=== PATIENT | female | born 2000 | race Caucasian/White ===

== ENCOUNTER 2019-11-15 23:10 | Emergency (ER) | payer BC, OTHER ==
[2019-11-15 23:24] VITALS: BP 111/67
--- OUTSIDE RECORDS SUMMARY | 2019-11-15 23:28 | XMS REPORT | Summary of Care ---
:2000 Author Organization [facility] Address [address] [address] Care Team Providers Name Role Phone Courtney Fraser Primary Care Provider Reason for Visit Reason Comments Establish Care Encounter Details Date Type Department Care Team Description 10/25/2019 Office Visit [facility], Encounter to establish care ( Primary Dx); Tamika Valdez NP Encounter for screening for human immunodeficiency virus (HIV); [address] [place] [address] Non-cardiac chest pain; [place] [address] FHx: BRCA gene positive [phone] Allergies Active Allergy Reactions Severity Noted Date Comments Amoxicillin Trihydrate Rash 08/23/2014 Cefzil Rash 08/23/2014 documented as of this encounter (statuses as of 10/25/2019) Medications Medication Sig Dispensed Refills Start Date End Date Status Ibuprofen (MOTRIN Take by 0 10/25/2019 Discontinued PO) mouth. 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 Knee pain, right 08/23/2014 documented as of this encounter (statuses as of 10/25/2019) Immunizations Name Administration Dates Next Due DTAP 06/12/2003, 08/25/1999, 1998, 1998, 1998 HIB (PRP-T) 08/25/1999, 1998, 1998, 1998 Hepatitis A Vaccine Peds 08/06/2009, 06/19/2007 Hepatitis B Vaccine 1998, 1998, 1998 Human Papillomavirus 08/17/2012, 10/13/2011, 08/12/2011 Influenza (IM) Preservative Free 08/24/2019, 08/09/2017, 07/24/2016, 08/22/2014, 08/20/2013, 08/17/2012, 08/12/2011 Influenza (IM) W/Pres 08/06/2010, 08/06/2009 MENINGOCOCCAL CONJUGATE VACCINE 08/22/2014, 08/06/2009 MMR VACCINE 06/12/2003, 05/27/1999 Meningococcal B Vaccine 03/12/2019, 12/11/2018 Poliomyelitis vaccine 06/12/2003, 05/27/1999, 1998, 1998 TDAP Vaccine 08/06/2009 Varicella Vaccine Live 11/02/2006, 05/27/1999 dT Vaccine 12/11/2018 documented as of this encounter Social History Tobacco Use Types Packs/Day Years Used Date Never Smoker Smokeless Tobacco: Never Used Alcohol Use Drinks/Week oz/Week Comments Yes occasional Social Isolation Answer Date Recorded In a typical week, how many times do you talk on Three times a week 2019 the phone with family, friends, or neighbors? How often do you get together with friends or Three times a week 10/25/2019 relatives? How often do you attend baptist or druze 1 to 4 times per year 10/25/2019 services? Do you belong to any clubs or organizations such Yes 10/25/2019 as baptist groups, unions, fraternal or athletic groups, or school groups? How often do you attend meetings of the clubs or 1 to 4 times per year 2019 organizations you belong to? Are you now , , , Not asked , never or living with a partner? Physical Activity Answer Date Recorded On average, how many days per week do you engage in moderate to 2 days 2019 strenuous exercise (like walking fast, running, jogging, dancing, swimming, biking, or other activities that cause a light or heavy sweat)? On average, how many minutes do you engage in exercise at this 30 min 2019 level? Stress Answer Date Recorded Do you feel stress - tense, restless, nervous, or anxious, Not at all 2019 or unable to sleep at night because your mind is troubled all the time - these days? Financial Resource Strain Answer Date Recorded How hard is it for you to pay for the very basics like Not hard at all 2019 food, housing, medical care, and heating? Intimate Partner Violence Answer Date Recorded Within the last year, have you been afraid of your partner or No 10/25/2019 ex-partner? Within the last year, have you been humiliated or emotionally No 10/25/2019 abused in other ways by your partner or ex-partner? Within the last year, have you been kicked, hit, slapped, or No 10/25/2019 otherwise physically hurt by your partner or ex-partner? Within the last year, have you been raped or forced to have any No 10/25/2019 kind of sexual activity by your partner or ex-partner? Food Insecurity Answer Date Recorded Within the past 12 months, you worried that your food would Never true 2019 run out before you got money to buy more. Within the past 12 months, the food you bought just didn't Never true 2019 last and you didn't have money to get more. Transportation Needs Answer Date Recorded In the past 12 months, has lack of transportation kept you from No 10/25/2019 medical appointments or from getting medications? In the past 12 months, has lack of transportation kept you from No 10/25/2019 meetings, work, or getting things needed for daily living? Sex Assigned at Date Recorded Not on file Job Start Date Occupation Industry Not on file Not on file Not on file Travel History Travel Start Travel End No recent travel history available. documented as of this encounter Last Filed Vital Signs Vital Sign Reading Time Taken Comments Blood Pressure 118/58 10/25/2019 1:04 PM EST Pulse 59 10/25/2019 1:04 PM EST Temperature - - Respiratory Rate - - Oxygen Saturation 95% 10/25/2019 1:04 PM EST Inhaled Oxygen Concentration - - Weight 58.5 kg (129 lb) 10/25/2019 1:04 PM EST Height 162.6 cm (5' 4") 10/25/2019 1:04 PM EST Body Mass Index 22.14 10/25/2019 1:04 PM EST documented in this encounter Patient Instructions Patient InstructionsCourtney Fraser NP - 10/25/2019 1:00 PM EST Consider meeting with the breast cancer specialist - let me know when you would like this referral. Find out when you are due for your physical and schedule if needed. It was a pleasure meeting you today! Welcome to [facility]. I encourage you to sign up for [employer] for on-line access. DIET AND EXERCISE: Exercise is recommended 150 minutes weekly: 30 minutes five days a week of moderate exercise such as walking. In addition is it recommended you have two days weekly of working all your major muscle groups (arms, legs) such as with weight lifting or other exercise. I recommend a well balanced healthy diet, portion control, drink plenty of fluids. The Mediterranean diet is an excellent diet. Be sure to get adequate sleep at night, 8 hours. If you cannot make an appointment please call to cancel 24 hours in advance so that appointment timecan be made available for another person. Patient Education Genetic Testing for Breast and Ovarian Cancer The Basics Written by the doctors and editors at [facility] What is genetic testing?Genetic testing is done to find out if you have certain abnormal genes. Genes are basically the body's recipe book. They tell your cells how to make different proteins, and they give your body instructions about how you should look and how your body should work. Unfortunately, genes can sometimes have "mutations," mistakes in the recipes that change the way your body makes proteins. These mutations can sometimes put you at risk for disease. There are genetic tests that look for specific mutations that are linked to lots of different diseases. This article is about mutations that increase the risk of breast and ovarian cancer specifically. Which genes affect a person's risk of breast and ovarian cancer? There are several genes that affect a person's risk of breast or ovarian cancer. The two genes most often associated with both breast and ovarian cancer risk are called BRCA1 and BRCA2, but experts are learning about other genes that increase the risk of breast cancer (with or without an increase in ovarian cancer risk). Genes are passed down in families, so women who have family members with breast or ovarian cancer sometimes have genetic tests to find out if they carry abnormal versions of genes. By having these tests, women can find out whether they need to take special steps to protect themselves from cancer. Should I have a genetic test for breast and ovarian cancer? Doctors recommend genetic testing only for women who have a strong family history of breast or ovarian cancer. Testing might make sense for you if you fit any of these descriptions: You have 2 or more close relatives with breast or ovarian cancer, especially if 1 or more of the relatives was diagnosed with cancer before she or he turned 50. (Close family members include your mother, sister, or daughter , and can include men with breast cancer, such as your father, brother, nathanael.) You have a close family member with more than one cancer, such as cancer in both breasts, or cancer in the breast and the ovary. You have family members from different generations with breast or ovarian cancer. (For example,your grandmother, mother, and sister, all with cancer.) Family history on your father's side is as important as your mother's side. Keep in mind, though, that having a strong family history of a disease does not always mean you haveabnormal genes. Most women with a family history of breast or ovarian cancer do not have an abnormalgene. If you are thinking about genetic testing because a family member has cancer, ask if she or he has been tested or is willing to be tested first. If the person with cancer does not have the mutation, itis less likely that you do. What should I do before I get tested?Before you get tested, talk with a genetic counselor or your doctor. A genetic counselor is a person who can help you understand what the results of the test could mean for you and your family, and what costs might be involved with getting tested. He or she can also help you deal with the feelings you have about being at risk for cancer and can help you understand your results. The results are not always clear cut. You can find a list of trained genetic counselors by going online to www.cancer.gov/cancertopics/genetics/directory. What if I test positive for a genetic mutation?If you test positive, try to stay calm.Finding out you carry a mutation can be scary. But there are ways to lower the chances that you willget cancer. Ask your doctor and your genetic counselor what your results mean for you. Then ask what you can do to lower your chances of getting cancer. If you are a woman , this table shows the lifetime risk of breast and ovarian cancer for a woman with a BRCA mutation (table 1). If you test positive for any genetic mutation that might increase your cancer risk, tell your familyabout the results. It affects their health as well as yours. Some family members might also want to get tested. How can I lower the chances that I will get cancer?There are some things you can do tolower your risk. Doctors have learned a lot about this by studying people with a BRCA mutation, and these options may apply to people with other mutations, too: Getting screened for breast and ovarian cancer often. This will not keep you from getting cancer, but it will increase the odds that you will find it early, when it is easier to treat. Having your breasts and ovaries removed. To lower your ovarian cancer risk as much as possible,experts suggest that the ovaries be removed as soon as you are done having children, and by age 40 if you have a BRCA1 mutation. Taking medicines that help prevent cancer Combining some or all of these choices Will my insurance cover genetic testing?In the [place], most health insurance companies cover most of the costs. But your doctor or genetic counselor might need to write a letter to the insurance company to explain why you need testing. Can the results of my test keep me from getting health insurance? No. In the [place] there is a law that prevents companies from using a person's genetic tests to make decisions about insurancecoverage or employment. The law means that: Employers can't deny you a job or fire you because of the results of genetic tests Health insurers can't use genetic test results to deny you coverage or set your insurance rates Employers and insurers can't force you to have genetic tests However, it is important to know that the law does not protect someone with a mutation from getting long-term disability or life insurance. All topics are updated as new evidence becomes available and our peer review process is complete. This topic retrieved from [employer] on: Aug 28, 2019. Topic 25046 Version 12.0 Release: 27.4.5 - C27.318 [employer]. and/or its affiliates.All rights reserved. table 1: Lifetime risk of breast and ovarian cancer for women with BRCA mutations Lifetime risk of breast cancer Lifetime risk of ovarian cancer BRCA1 mutation 55 to 85 percent 35 to 46 percent BRCA2 mutation 50 to 85 percent 13 to 23 percent Graphic 49940 Version 2.0 Consumer Information Use and Disclaimer This information is not specific medical advice and does not replace information you receive from your health care provider. This is only a brief summary of general information. It does NOT include allinformation about conditions, illnesses, injuries, tests, procedures, treatments, therapies, discharge instructions or life-style choices that may apply to you. You must talk with your health care provider for complete information about your health and treatment options. This information should not beused to decide whether or not to accept your health care provider's advice, instructions or recommendations. Only your health care provider has the knowledge and training to provide advice that is right for you.The use of [employer] content is governed by the [employer] Terms of Use. 2019 [employer]. All rights reserved. Copyright 2019[employer]. and/or its affiliates.All rights reserved. documented in this encounter Progress Notes Ling Mcintosh MD - 10/25/2019 1:00 PM ESTNote reviewed 4: 13 PM Courtney Villa NP - 10/25/2019 1:00 PM EST PATIENT: Mary Cintron : 2000 DATE OF SERVICE: 10/25/2019 CHIEF COMPLAINT: Chief Complaint Patient presents with Establish Care Subjective HISTORY OF PRESENT ILLNESS: Mary Cintron is a 19-y.o. female. HPI Here to establish care. Prior PCP was [facility]. Sometimes a sharp pain in chest for a few years but will go away when she takes a deep breath. Lasts about one minute. Not associated with other symptoms such as palpitations diaphoresis or shortnessof breath. LMP: 09/29/19 - no menstrual problems. Not sexually active. Pap (21-65): July 2019 - had a polyp which was [facility] Family or personal history of breast or ovarian cancer: Grandmother breast cancer older age. Mother was positive for BRCA 2. Eye Exam: One year ago, no eye problems. Dental Exam: August 2019 - no dental problems. Specialists: None. Diet: Mostly vegetarian. Water: 64 oz. Exercise: Most days, at least 5 days per week. Club rowing team at [place], running and yoga at home. History reviewed. No pertinent past medical history. Family History Problem Relation Age of Onset Cancer Paternal Grandfather prostate Thyroid Mother Hypothyroid High Cholesterol Father No Known Problems Sister No Known Problems Brother Cancer Maternal Grandmother breast - older age Cancer Maternal Grandfather lung No current outpatient medications on file. No current facility-administered medications for this visit. Allergies Allergen Reactions Amoxicillin Trihydrate Rash Cefzil Rash Social History Socioeconomic History Marital status: Single Spouse name: Not on file Number of children: Not on file Years of education: Not on file Highest education level: Not on file Occupational History Not on file Social Needs Financial resource strain: Not hard at all Food insecurity Worry: Never true Inability: Never true Transportation needs Medical: No Non-medical: No Tobacco Use Smoking status: Never Smoker Smokeless tobacco: Never Used Substance and Sexual Activity Alcohol use: Yes Comment: occasional Drug use: Never Sexual activity: Never Lifestyle Physical activity Days per week: 2 days Minutes per session: 30 min Stress: Not at all Relationships Social connections Talks on phone: Three times a week Gets together: Three times a week Attends druze service: 1 to 4 times per year Active member of club or organization: Yes Attends meetings of clubs or organizations: 1 to 4 times per year Relationship status: Not on file Intimate partner violence Fear of current or ex partner: No Emotionally abused: No Physically abused: No Forced sexual activity: No Other Topics Concern Not on file Social History Narrative [employer] - major in "biology and society" Senior. Over the last 2 weeks, have you been feeling down, depressed, anxious, or hopeless?: 0 Over the past 2 weeks, have you felt little interest or pleasure in doing things ?: 0 REVIEW OF SYSTEMS: Review of Systems Constitutional: Negative for chills, fever, malaise/fatigue and weight loss. HENT: Negative for congestion, ear discharge, ear pain, sinus pain and sore throat. Eyes: Negative for pain, discharge and redness. Respiratory: Negative for cough and shortness of breath. Cardiovascular: Positive for chest pain (see hpi). Negative for palpitations and leg swelling. Gastrointestinal: Negative for abdominal pain, blood in stool, constipation, diarrhea, nausea and vomiting. Genitourinary: Negative for dysuria, frequency and urgency. Musculoskeletal: Negative for back pain, joint pain, myalgias and neck pain. Neurological: Negative for dizziness, tingling, sensory change and headaches. Psychiatric/Behavioral: Negative for depression. The patient is not nervous/ anxious. Objective PHYSICAL EXAM: VITALS: BP 118/58 (BP Location: Left arm, Patient Position: Sitting) | Pulse 59 | Ht 5' 4" (1.626m) | Wt 129 lb (58.5 kg) | SpO2 95% | No | BMI 22.14 kg/m Body mass index is 22.14 kg/m. Physical Exam Vitals signs and nursing note reviewed. Constitutional: General: She is not in acute distress. Appearance: Normal appearance. She is well-developed. Cardiovascular: Rate and Rhythm: Normal rate and regular rhythm. Heart sounds: Normal heart sounds. No murmur. No friction rub. No gallop. Pulmonary: Effort: Pulmonary effort is normal. No respiratory distress. Breath sounds: Normal breath sounds. Neurological: Mental Status: She is alert. Psychiatric: Mood and Affect: Mood and affect normal. Speech: Speech normal. Behavior: Behavior normal. Behavior is cooperative. ASSESSMENT / IMPRESSION: ICD-9-CM ICD-10-CM 1. Encounter to establish care V65.8 Z76.89 2. Encounter for screening for human immunodeficiency virus (HIV) V73.89 Z11.4 HIV 1,2 ANTIBODY SCREEN 3. Non-cardiac chest pain 786.59 R07.89 4. FHx: BRCA gene positive V18.9 Z84.81 Plan 1. Encounter for screening for human immunodeficiency virus (HIV) One time screening offered. - HIV 1,2 ANTIBODY SCREEN; Future 2. Encounter to establish care Record release for [facility] 3. Non-cardiac chest pain Will monitor - if any changes or new symptoms will further evaluate. 4. FHx: BRCA gene positive Counseled her on this today and advised she see Dr. Stafford which she refused. She states "I don't think I want to know yet" - advised she could meet with Dr. Stafford and doesn't mean she has to do genetic testing but may consider early screening etc, still refusing referral for now. Author: Courtney Fraser NP 10/25/2019 13:47 documented in this encounter Plan of Treatment Name Type Priority Associated Diagnoses Date/Time HIV 1,2 ANTIBODY Lab Routine Encounter for screening for 10/25/2019 1:52 PM SCREEN human immunodeficiency virus EST (HIV) Name Type Priority Associated Diagnoses Order Schedule HIV 1,2 ANTIBODY Lab Routine Encounter for screening for Expected: 2019 SCREEN human immunodeficiency virus (Approximate), (HIV) Expires: 10/25/2020 Health Maintenance Due Date Last Done Comments HIV SCREENING 2013 DEPRESSION SCREENING 10/25/2020 10/25/2019 PAP SMEAR 07/24/2022 07/24/2019 DTaP/Tdap/Td Vaccines ( - 12/11/2028 12/11/2018, 08/06/2009, Tdap) 06/12/2003, Additional history exists HEPATITIS A IMMUNIZATION Completed 08/06/2009, 06/19/2007 SERIES HPV IMMUNIZATION SERIES Completed 08/17/2012, 10/13/2011, 08/12/2011 MENINGOCOCCAL VACCINE IMM Completed 08/22/2014, 08/06/2009 INFLUENZA VACCINE Completed 08/24/2019, 08/09/2017, 07/24/2016, Additional history exists PNEUMOCOCCAL 0-64 YRS Aged Out No longer eligible based on patient's age to complete this topic documented as of this encounter Procedures Procedure Name Priority Date/Time Associated Diagnosis Comments PAP SMEAR THINPREP AND Routine 07/24/2019 Results for this HPV (EXTERNAL) procedure are in the results section. documented in this encounter Results PAP SMEAR THINPREP AND HPV (EXTERNAL) (07/24/2019) HM PAP SMEAR negative [facility] POCT Performing Organization Address City/State/Zipcode Phone Number [facility] [address] [place] [address] [address] documented in this encounter Visit Diagnoses Diagnosis Encounter for screening for human immunodeficiency virus (HIV) Special screening examination for other specified viral diseases Encounter to establish care Other reasons for seeking consultation Non-cardiac chest pain Other chest pain FHx: BRCA gene positive Family history of genetic disease carrier documented in this encounter
--- NOTE | 2019-11-15 23:52 | ED ---
Laceration/Wound HPI - HPI Summary HPI Summary: 19-year-old female with no significant past medical history who does not use anticoagulation and does not have a bleeding disorder presents to the emergency department today after sustaining a laceration to her left fall while doing box jumps at practice. Patient has a approximately 1 cm laceration which is quite deep to the anterior aspect of the mid left fall. Bleeding is controlled. Patient states she cleaned the wound with alcohol and hydrogen peroxide prior to arrival in the emergency department. Patient states her tetanus is not up-to -date. Patient has 2 out of 10 pain. Pt has full ROM. Pt feels well otherwise and denies fever, chest, abdominal pain, rash, pain with urination. Surgical history and family history noncontributory. - History of Current Complaint Stated Complaint: L LEG LAC PER PT Time Seen by Provider: 11/15/19 23:52 Hx Obtained From: Patient Hx Last Menstrual Period: 01/26/16 Onset/Duration: Sudden Onset, Lasting Hours Aggravating: Movement Onset Severity: Mild Current Severity: Mild Pain Intensity: 1 Pain Scale Used: 0-10 Numeric Associated Signs & Symptoms: Pain - Allergy/Home Medications Allergies/Adverse Reactions: Allergies Allergy/AdvReac Type Severity Reaction Status Date / Time amoxicillin Allergy Rash Verified 11/15/19 23:19 cefprozil Allergy Vomiting Verified 11/15/19 23:19 Home Medications: Home Medications Norethindrone 0.35 mg PO DAILY 11/16/19 [History Confirmed 11/16/19] PMH/Surg Hx/FS Hx/Imm Hx Endocrine/Hematology History: Denies: Hx Diabetes Cardiovascular History: Denies: Hx Hypertension, Hx Pacemaker/ICD History: Denies: Hx Renal Disease Sensory History: Denies: Hx Hearing Aid Psychiatric History: Denies: Hx Panic Disorder - Surgical History Surgery Procedure, Year, and Place: 10/10/14 left knee (ACL RECONSTRUCTION) arthroscopic by Higinio Thomas. 02/12/16 ACL reconstruction Infectious Disease History: No Infectious Disease History: Denies: History Other Infectious Disease, Traveled Outside the [place] in Last 30 Days - Family History Known Family History: Positive: Other - NONCONTIBUTORY - Social History Alcohol Use: None Substance Use Type: Reports: Prescribed Smoking Status (MU): Never Smoked Tobacco Review of Systems Constitutional: Negative Eyes: Negative ENT: Negative Cardiovascular: Negative Respiratory: Negative Gastrointestinal: Negative Genitourinary: Negative Musculoskeletal: Negative Skin: Negative Neurological: Negative Psychological: Normal All Other Systems Reviewed And Are Negative: Yes Physical Exam - Summary Physical Exam Summary: There is a 1 cm laceration noted to the mid anterior left fall and a flap shape. Patient is full range of motion and is neurovascularly intact. Bleeding controlled. Triage Information Reviewed: Yes Vital Signs On Initial Exam: Initial Vitals Temp Pulse Resp BP Pulse Ox 99.4 F 70 18 111/67 100 11/15/19 23:19 11/15/19 23:19 11/15/19 23:19 11/15/19 23:19 11/15/19 23:19 Vital Signs Reviewed: Yes Appearance: Positive: Well-Appearing, No Pain Distress, Well-Nourished Skin: Positive: Warm, Skin Color Reflects Adequate Perfusion Eyes: Positive: EOMI, JACE ENT: Positive: Hearing grossly normal Respiratory/Lung Sounds: Positive: Clear to Auscultation, Breath Sounds Present Cardiovascular: Positive: RRR, S1, S2 Abdomen Description: Positive: Nontender, Soft Bowel Sounds: Positive: Present Musculoskeletal: Positive: Strength/ROM Intact Neurological: Positive: Sensory/Motor Intact, Alert, Oriented to Person Place, Time, Normal Gait, Facial Symmetry, Speech Normal Psychiatric: Positive: Normal, Affect/Mood Appropriate AVPU Assessment: Alert Procedures - Sedation Patient Received Moderate/Deep Sedation with Procedure: No - Laceration/Wound Repair 1 Location: lower extremity Description: Linear Anesthesia: Local, 1.0% Length, Depth and Shape: 1 cm in length by 4 mm of depth Betadine Prep?: No Irrigated w/ Saline (ccs): 200 Laceration/Wound Explored: clean Closure: Single Layer Suture Type: Nylon Number of Sutures: 3 - 4-0 nylon Layer Closure?: No Sterile Dressing Applied?: Yes Diagnostics - Vital Signs Vital Signs Temp Pulse Resp BP Pulse Ox 11/15/19 23:19 99.4 F 70 18 111/67 100 - Laboratory Lab Statement: Any lab studies that have been ordered have been reviewed, and results considered in the medical decision making process. Laceration Repair Course/Dx - Course Course Of Treatment: Patient was evaluated in the emergency department today for laceration to the left anterior fall. Patient was seen and examined her vitals are stable and she is afebrile. Laceration was approximated using 3 4-0 nylon sutures placed in simple interrupted fashion. Minimal blood loss during procedure. Patient tolerated procedure well. Patient is to follow up at [facility] for suture removal in 8 days. Patient discharged to outpatient follow-up. Patient's tetanus immunization updated during emergency department stay. - Differential Dx Differental Diagnoses: Laceration, Puncture Wound, Tendon Laceration - Clinical Impression Provider Diagnoses: Laceration of left lower extremity Discharge ED - Sign-Out/Discharge Documenting (check all that apply): Patient Departure - Discharge Plan Condition: Stable Disposition: HOME Patient Education Materials: Care For Your Stitches (ED), Laceration (ED) Referrals: No Primary Care Phys,NOPCP [Primary Care Provider] - Additional Instructions: Please have your sutures removed in this emergency department or at [facility] in 8 days. You may take ibuprofen 600 mg every 6 hours as needed for pain. Please keep your wound dry for 24 hours and then you may remove the dressing and clean it with warm soapy water and pat it dry. Reapply dressing daily after 24 hours until seen for suture removal. Please return to the emergency department immediately if you develop any new or worsening symptoms. - Billing Disposition and Condition Condition: STABLE Disposition: Home
[2019-11-16] MEDS ORDERED: Tetan/Diph/Pertus SYR(Tdap)* 0.5 ML SYR(BOOSTRIX) use SYR contains LATEX IM ONE
== END 2019-11-16 01:00 | disposition home or self-care (01) ==
LOC: ED 23:10
DX: S81.812A Laceration without foreign body, left lower leg, initial encounter (principal); Z23 Encounter for immunization; X58.XXXA Exposure to other specified factors, initial encounter; Y92.9 Unspecified place or not applicable; Z88.0 Allergy status to penicillin; Z88.1 Allergy status to other antibiotic agents
CPT/HCPCS: 12001; 90471; 90715; 99282